=== PATIENT | female | born 1980 | race Caucasian/White ===

== ENCOUNTER 2017-07-27 20:07 | Emergency (ER) | payer BC, OTHER ==
[2017-07-27 20:20] VITALS: BP 151/104
[2017-07-27] MEDS ORDERED: Sodium Chloride 0.9% 10 ML Syringe FLUSH PRN (20:34)
[2017-07-27] MEDS ORDERED: HYDROmorphone 0.5 MG/0.5 ML SYRINGE IVPUSH ONE ×2 (20:34→21:20)
[2017-07-27] MEDS ORDERED: Ondansetron 4 MG/2 ML SDV IVPUSH ONE (20:34)
[2017-07-27] MEDS ORDERED: Sodium Chloride 0.9% 1,000 ML IV SCH (20:45)
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
[2017-07-27] MEDS ORDERED: 50% Dextrose in Water 50 ML Syringe IVPUSH ONE (21:26)
== END 2017-07-27 22:40 | disposition home or self-care (01) ==
LOC: JD.ED 20:07
DX: R10.84 Generalized abdominal pain (principal); R19.7 Diarrhea, unspecified; R11.10 Vomiting, unspecified; I10 Essential (primary) hypertension; F17.210 Nicotine dependence, cigarettes, uncomplicated; Z88.2 Allergy status to sulfonamides; Z88.1 Allergy status to other antibiotic agents; Z79.899 Other long term (current) drug therapy
CPT/HCPCS: 36415; 80053; 85025; 96361; 96374; 96375; 99284; J1170; J2405; J7040; J7050; J7060

== ENCOUNTER 2021-03-08 17:44 | Emergency (ER) | payer SELFPAY ==
[2021-03-08 18:49] VITALS: BP 185/107; PULSE 76
[2021-03-08] MEDS ORDERED: Diphtheria,Pertussis(Acell),Tetanus Vaccine 0.5 ML Syringe IM ONE (19:28)
[2021-03-08] MEDS ORDERED: Lidocaine 1% 10 ML MDV INJECT ONE (19:28)
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
== END 2021-03-08 20:25 | disposition home or self-care (01) ==
LOC: JD.ED 17:44
DX: S01.112A Laceration without foreign body of left eyelid and periocular area, initial encounter (principal); S80.212A Abrasion, left knee, initial encounter; S40.212A Abrasion of left shoulder, initial encounter; I10 Essential (primary) hypertension; Z23 Encounter for immunization; Z72.0 Tobacco use; Z88.0 Allergy status to penicillin; Z88.2 Allergy status to sulfonamides; W01.198A Fall on same level from slipping, tripping and stumbling with subsequent striking against other object, initial encounter; Y93.01 Activity, walking, marching and hiking; Y92.480 Sidewalk as the place of occurrence of the external cause
CPT/HCPCS: 12011; 90471; 90715; 99282-25

== ENCOUNTER 2022-03-24 15:34 | Emergency (ER) | payer MEDICAID ==
[2022-03-24 16:11] VITALS: BP 229/200; PULSE 109
== END 2022-03-24 16:12 | disposition home or self-care (01) ==
LOC: JD.ED 15:34
DX: R09.2 Respiratory arrest (principal); R55 Syncope and collapse; I10 Essential (primary) hypertension; Z88.0 Allergy status to penicillin; Z88.2 Allergy status to sulfonamides
CPT/HCPCS: 99283

== ENCOUNTER 2022-06-09 03:12 | Emergency (ER) | payer MEDICAID ==
[2022-06-09] MEDS ORDERED: Sodium Chloride 0.9% 10 ML Syringe FLUSH PRN (03:25)
[2022-06-09] MEDS ORDERED: Sodium Chloride 0.9% 1,000 ML IV STA (03:25)
[2022-06-09] MEDS ORDERED: HYDROmorphone 1 MG/ML Syringe IVPUSH ONE (03:26)
[2022-06-09] MEDS ORDERED: Ondansetron 4 MG/2 ML SDV IVPUSH ONE (03:26)
[2022-06-09 03:31] VITALS: BP 194/117; PULSE 72
[2022-06-09 04:07] LABS: ESTIMATED GFR 82 mL/min (>60)
[2022-06-09] MEDS ORDERED: LORazepam 2 MG/ML SDV IVPUSH ONE (04:41)
[2022-06-09] MEDS ORDERED: Iopamidol 612 MG/ML 100 ML Bottle IVPUSH ONE (05:35)
== END 2022-06-09 06:07 | disposition home or self-care (01) ==
LOC: JD.ED 03:12
DX: A08.4 Viral intestinal infection, unspecified (principal); I10 Essential (primary) hypertension; Z88.2 Allergy status to sulfonamides; Z88.0 Allergy status to penicillin; Z98.890 Other specified postprocedural states
CPT/HCPCS: 36415; 74177; 80053; 83690; 84703; 85025; 96361; 96374; 96375; 99284; J1170; J2060; J2405; J3490; J7030; Q9967

== ENCOUNTER 2023-01-19 10:57 | Emergency (ER) | payer MEDICAID ==
[2023-01-19] MEDS ORDERED: Lisinopril 20 MG Tab PO SCH (11:30)
[2023-01-19 11:49] LABS: BASOPHILS ABSOLUTE AUTO 0.1 K/mm3 (0.0-0.2); BASOPHILS PERCENT AUTO 0.9 % (0.0-1.0); EOSINOPHILS ABSOLUTE AUTO 0.2 K/mm3 (0.0-0.4); EOSINOPHILS PERCENT AUTO 2.2 % (0.0-6.0); HEMATOCRIT 40.8 % (37.0-47.0); HEMOGLOBIN 13.4 gm/dl (12.0-16.0); IMMATURE GRAN ABSOLUTE AUTO 0.03 K/mm3 (0.00-0.05); IMMATURE GRAN PERCENT AUTO 0.4 % (0.0-0.4); LYMPHOCYTES ABSOLUTE AUTO 0.9 K/mm3 (1.0-4.8); LYMPHOCYTES PERCENT AUTO 10.8 % (24.0-44.0); MEAN CORPUSCULAR HEMOGLOBIN 26.6 pg (28.0-32.0); MEAN CORPUSCULAR HGB CONC 32.8 g/dl (32.0-36.0); MEAN CORPUSCULAR VOLUME 81.1 fl (83.0-99.0); MEAN PLATELET VOLUME 10.6 fl (9.4-12.3); MONOCYTES ABSOLUTE AUTO 0.8 K/mm3 (0.0-0.8); MONOCYTES PERCENT AUTO 9.5 % (0.0-8.0); NEUTROPHILS ABSOLUTE AUTO 6.5 K/mm3 (1.8-7.7); NEUTROPHILS PERCENT AUTO 76.2 % (41.0-71.0); PLATELET COUNT,PLT 271 K/mm3 (150-400); RED BLOOD CELL COUNT 5.03 M/mm3 (4.10-5.30)
[2023-01-19 12:00] LABS: APPEARANCE,URINE CLEAR (Clear); BILIRUBIN,URINE NEGATIVE (Negative); COLOR,URINE YELLOW (Yellow); GLUCOSE,URINE NEGATIVE (Negative); KETONES,URINE NEGATIVE (Negative); LEUKOCYTE ESTERASE,URINE NEGATIVE (Negative); NITRITE,URINE NEGATIVE (Negative); OCCULT BLOOD,URINE NEGATIVE (Negative); PROTEIN,URINE 2+ (Negative); UROBILINOGEN,URINE 0.2 (0.2-1.0)
[2023-01-19 12:13] LABS: BACTERIA,URINE FEW /hpf (FEW); HYALINE CASTS,URINE 0-5 /lpf (0-5); MUCUS,URINE MODERATE /hpf (FEW); RBC,URINE 0-5 /hpf (0-5); WBC,URINE 0-5 /hpf (0-5)
[2023-01-19 12:15] LABS: A/G RATIO 0.9 (1-2); ALBUMIN 3.5 g/dl (3.4-5.0); ANION GAP 11.8 (5-15); BILIRUBIN TOTAL 0.3 mg/dL (0.2-1.0); BUN/CREATININE RATIO 8.6 (14-18); CALCIUM 8.7 mg/dL (8.5-10.1); CREATININE 0.7 mg/dL (0.55-1.02); EST CRCL DRUG DOSING (CG) 90.41 mL/min; POTASSIUM,K 2.8 mEq/L (3.5-5.1); PROTEIN TOTAL,TP 7.5 g/dl (6.4-8.2)
[2023-01-19] MEDS ORDERED: Potassium Chloride 20 MEQ Tab.ER PO ONE (12:24)
[2023-01-19 13:01] LABS: CORONAVIRUS COVID-19 NAA NEGATIVE (NEGATIVE); INFLUENZA A NAA NEGATIVE (NEGATIVE)
[2023-01-19 13:49] LABS: BARBITURATE SCREEN,URINE NEGATIVE (CUTOFF=200); BENZODIAZEPINES SCREEN,URINE NEGATIVE (CUTOFF=150); BUPRENORPHINE SCREEN,URINE NEGATIVE (CUTOFF=10); METHADONE SCREEN, URINE NEGATIVE (CUTOFF=200); METHAMPHETAMINES SCREEN, URINE PRESUMPTIVE POSITIVE (CUTOFF=500); OXYCODONE SCREEN,URINE NEGATIVE (CUT0FF=100); PROPOXYPHENE SCREEN,URINE NEGATIVE (CUTOFF=300); THC SCREEN,URINE 20 NG/ML NEGATIVE (CUTOFF=50)
[2023-01-19 13:51] LABS: AMPHETAMINES SCREEN, URINE PRESUMPTIVE POSITIVE (CUTOFF=500)
[2023-01-19] MEDS ORDERED: Carvedilol 3.125 MG Tab PO ONE (14:44)
[2023-01-19] MEDS ORDERED: amLODIPine 5 MG Tab PO ONE (14:45)
[2023-01-19] MEDS ORDERED: amLODIPine 2.5 MG Tab PO ONE (15:00)
[2023-01-19 16:01] VITALS: BP 173/108; PULSE 73
== END 2023-01-19 15:50 | disposition home or self-care (01) ==
LOC: JD.ED 10:57
DX: I10 Essential (primary) hypertension (principal); F15.90 Other stimulant use, unspecified, uncomplicated; R79.89 Other specified abnormal findings of blood chemistry; I51.7 Cardiomegaly; Z20.822 Contact with and (suspected) exposure to COVID-19; Z79.899 Other long term (current) drug therapy; Z88.1 Allergy status to other antibiotic agents; Z88.2 Allergy status to sulfonamides
CPT/HCPCS: 0240U; 36415; 71046; 80053; 80306; 81001; 84484; 85025; 93005; 99284; A9270; 93010; 99283

== ENCOUNTER 2023-07-01 13:03 | Emergency (ER) | payer SELFPAY ==
[2023-07-01 13:13] VITALS: PULSE 74
[2023-07-01] MEDS: Metoclopramide 10 MG/2 ML SDV IVPUSH ONE (14:23)
[2023-07-01] MEDS: Dextrose 5%-0.9% NaCl 1,000 ML IV SCH (14:23)
[2023-07-01] MEDS: Labetalol 100 MG/20 ML MDV IVPUSH ONE (14:24)
[2023-07-01 14:30] LABS: BASOPHILS ABSOLUTE AUTO 0.1 K/mm3 (0.0-0.2); EOSINOPHILS ABSOLUTE AUTO 0.2 K/mm3 (0.0-0.4); EOSINOPHILS PERCENT AUTO 2.3 % (0.0-6.0); HEMOGLOBIN 14.2 gm/dl (12.0-16.0); IMMATURE GRAN ABSOLUTE AUTO 0.03 K/mm3 (0.00-0.05); IMMATURE GRAN PERCENT AUTO 0.3 % (0.0-0.4); LYMPHOCYTES PERCENT AUTO 10.2 % (24.0-44.0); MEAN CORPUSCULAR HEMOGLOBIN 27.7 pg (28.0-32.0); MEAN CORPUSCULAR VOLUME 83.8 fl (83.0-99.0); MEAN PLATELET VOLUME 10.9 fl (9.4-12.3); MONOCYTES ABSOLUTE AUTO 0.7 K/mm3 (0.0-0.8); MONOCYTES PERCENT AUTO 7.2 % (0.0-8.0); NEUTROPHILS ABSOLUTE AUTO 8.1 K/mm3 (1.8-7.7); PLATELET COUNT,PLT 314 K/mm3 (150-400); RED BLOOD CELL COUNT 5.13 M/mm3 (4.10-5.30); WHITE BLOOD CELL COUNT,WBC 10.19 K/mm3 (3.9-11.3)
[2023-07-01 14:44] LABS: PROTHROMBIN TIME 9.8 SECONDS (9.7-12.0)
[2023-07-01 14:48] LABS: INR < 0.93
[2023-07-01] MEDS ORDERED: HYDROmorphone 0.5 MG/0.5 ML Syringe IVPUSH ONE (15:13)
[2023-07-01 15:24] LABS: A/G RATIO 0.8 (1-2); ALBUMIN 3.4 g/dl (3.4-5.0); ANION GAP 13.8 (5-15); BILIRUBIN TOTAL 0.5 mg/dL (0.2-1.0); CALCIUM 8.4 mg/dL (8.5-10.1); CREATININE 0.6 mg/dL (0.55-1.02); EST CRCL DRUG DOSING (CG) 104.4 mL/min; MAGNESIUM 1.5 mg/dL (1.8-2.4); POTASSIUM,K 2.8 mEq/L (3.5-5.1); PROTEIN TOTAL,TP 7.5 g/dl (6.4-8.2)
[2023-07-01] MEDS: amLODIPine 10 MG Tab PO ONE (16:01)
[2023-07-01] MEDS: Losartan 50 MG Tab PO ONE (16:01)
[2023-07-01 16:02] VITALS: BP 168/92
[2023-07-01] MEDS: Ondansetron 4 MG Tab.DIS PO ONE (17:27)
== END 2023-07-01 17:35 | disposition home or self-care (01) ==
LOC: JD.ED 13:03
DX: S13.9XXA Sprain of joints and ligaments of unspecified parts of neck, initial encounter (principal); S00.03XA Contusion of scalp, initial encounter; I10 Essential (primary) hypertension; F17.210 Nicotine dependence, cigarettes, uncomplicated; R11.2 Nausea with vomiting, unspecified; Z88.0 Allergy status to penicillin; Z88.2 Allergy status to sulfonamides; Z79.899 Other long term (current) drug therapy; Z86.16 Personal history of COVID-19; W54.1XXA Struck by dog, initial encounter
CPT/HCPCS: 36415; 70450; 80053; 83735; 83880; 85025; 85610; 85730; 93005; 96361; 96374; 96375; 99284; A9270; J1921; J2765; J7042; 93010

== ENCOUNTER 2023-09-02 19:11 | Inpatient (IN) | payer SELFPAY ==
[2023-09-02 21:06] LABS: BASOPHILS ABSOLUTE AUTO 0.1 K/mm3 (0.0-0.2); BASOPHILS PERCENT AUTO 1.1 % (0.0-1.0); EOSINOPHILS ABSOLUTE AUTO 0.1 K/mm3 (0.0-0.4); EOSINOPHILS PERCENT AUTO 2.7 % (0.0-6.0); HEMOGLOBIN 13.6 gm/dl (12.0-16.0); IMMATURE GRAN ABSOLUTE AUTO 0.01 K/mm3 (0.00-0.05); IMMATURE GRAN PERCENT AUTO 0.2 % (0.0-0.4); LYMPHOCYTES ABSOLUTE AUTO 0.4 K/mm3 (1.0-4.8); LYMPHOCYTES PERCENT AUTO 6.8 % (24.0-44.0); MEAN CORPUSCULAR HEMOGLOBIN 28.8 pg (28.0-32.0); MEAN CORPUSCULAR HGB CONC 33.2 g/dl (32.0-36.0); MEAN CORPUSCULAR VOLUME 86.7 fl (83.0-99.0); MEAN PLATELET VOLUME 10.9 fl (9.4-12.3); MONOCYTES ABSOLUTE AUTO 0.7 K/mm3 (0.0-0.8); MONOCYTES PERCENT AUTO 13.8 % (0.0-8.0); NEUTROPHILS PERCENT AUTO 75.4 % (41.0-71.0); PLATELET COUNT,PLT 226 K/mm3 (150-400); RED BLOOD CELL COUNT 4.73 M/mm3 (4.10-5.30); WHITE BLOOD CELL COUNT,WBC 5.28 K/mm3 (3.9-11.3)
[2023-09-02] MEDS: Metoprolol Tartrate 25 MG Tab PO ONE ×2 (21:08→22:28)
[2023-09-02] MEDS: hydrALAZINE 25 MG Tab PO ONE (21:09)
[2023-09-02 21:38] LABS: ANION GAP 12.2 (5-15); BUN/CREATININE RATIO 6.3 (14-18); CALCIUM 8.4 mg/dL (8.5-10.1); CREATININE 0.8 mg/dL (0.55-1.02); EST CRCL DRUG DOSING (CG) 78.3 mL/min; POTASSIUM,K 3.2 mEq/L (3.5-5.1)
[2023-09-02 22:54] LABS: BUPRENORPHINE SCREEN,URINE NEGATIVE (CUTOFF=10)
[2023-09-02 22:55] LABS: BARBITURATE SCREEN,URINE NEGATIVE (CUTOFF=200); BENZODIAZEPINES SCREEN,URINE NEGATIVE (CUTOFF=150); METHADONE SCREEN, URINE NEGATIVE (CUTOFF=200); METHAMPHETAMINES SCREEN, URINE PRESUMPTIVE POSITIVE (CUTOFF=500); OXYCODONE SCREEN,URINE NEGATIVE (CUT0FF=100); THC SCREEN,URINE 20 NG/ML NEGATIVE (CUTOFF=50)
[2023-09-02 22:56] LABS: AMPHETAMINES SCREEN, URINE PRESUMPTIVE POSITIVE (CUTOFF=500)
[2023-09-03] MEDS: hydrALAZINE 25 MG Tab PO PRN (01:59)
[2023-09-03] MEDS ORDERED: Sodium Chloride 0.9% 10 ML Syringe FLUSH PRN (02:25)
[2023-09-03] MEDS: Acetaminophen 325 MG Tab PO PRN (02:39)
[2023-09-03 06:26] LABS: HEMATOCRIT 42.9 % (37.0-47.0); HEMOGLOBIN 14.3 gm/dl (12.0-16.0); MEAN CORPUSCULAR HEMOGLOBIN 28.7 pg (28.0-32.0); MEAN CORPUSCULAR HGB CONC 33.3 g/dl (32.0-36.0); MEAN CORPUSCULAR VOLUME 86.1 fl (83.0-99.0); MEAN PLATELET VOLUME 11.1 fl (9.4-12.3); PLATELET COUNT,PLT 250 K/mm3 (150-400); RED BLOOD CELL COUNT 4.98 M/mm3 (4.10-5.30); WHITE BLOOD CELL COUNT,WBC 4.15 K/mm3 (3.9-11.3)
[2023-09-03 06:47] LABS: A/G RATIO 0.9 (1-2); ALBUMIN 3.1 g/dl (3.4-5.0); ANION GAP 11.4 (5-15); BILIRUBIN TOTAL 0.3 mg/dL (0.2-1.0); BUN/CREATININE RATIO 3.8 (14-18); CALCIUM 8.6 mg/dL (8.5-10.1); CREATININE 0.8 mg/dL (0.55-1.02); EST CRCL DRUG DOSING (CG) 78.3 mL/min; POTASSIUM,K 3.4 mEq/L (3.5-5.1); PROTEIN TOTAL,TP 6.7 g/dl (6.4-8.2)
[2023-09-03] MEDS: amLODIPine 10 MG Tab PO SCH (08:23)
[2023-09-03] MEDS: Losartan 50 MG Tab PO SCH (10:59)
[2023-09-03 11:00] VITALS: BP 158/103
[2023-09-03 11:20] VITALS: PULSE 78
== END 2023-09-03 12:39 | disposition home or self-care (01) | DRG 305 ==
LOC: JD.ED 19:11 → JD.MS 09-03 00:24
PROVIDERS: ADMIT Internal Medicine; ATTEND Internal Medicine
DX: I16.0 Hypertensive urgency (principal); H54.7 Unspecified visual loss; I10 Essential (primary) hypertension; M54.9 Dorsalgia, unspecified; G89.29 Other chronic pain; F41.9 Anxiety disorder, unspecified; F32.A Depression, unspecified; R79.89 Other specified abnormal findings of blood chemistry; F15.10 Other stimulant abuse, uncomplicated; F17.210 Nicotine dependence, cigarettes, uncomplicated; Z88.0 Allergy status to penicillin; Z88.2 Allergy status to sulfonamides; Z79.899 Other long term (current) drug therapy; Z86.16 Personal history of COVID-19; Z98.891 History of uterine scar from previous surgery
CPT/HCPCS: 36415; 70450; 70450-26; 71045; 71045-26; 80048; 80053; 80306; 84484; 84703; 85025; 85027; 93005; 99285; A9270-GY

== ENCOUNTER 2023-09-03 18:05 | Emergency (ER) | payer SELFPAY ==
[2023-09-03 18:33] VITALS: BP 123/87; PULSE 93
== END 2023-09-03 21:00 | disposition left against medical advice (07) ==
LOC: JD.ED 18:05
DX: Z53.21 Procedure and treatment not carried out due to patient leaving prior to being seen by health care provider (principal)
CPT/HCPCS: 82947

== ENCOUNTER 2023-12-13 17:36 | Emergency (ER) | payer OTHER ==
[2023-12-13] MEDS: Sodium Chloride 0.9% 10 ML Syringe FLUSH ONE (18:18)
[2023-12-13] MEDS: Iopamidol 612 MG/ML 100 ML Bottle IVPUSH ONE (18:18)
[2023-12-13 18:20] LABS: BASOPHILS ABSOLUTE AUTO 0.1 K/mm3 (0.0-0.2); BASOPHILS PERCENT AUTO 0.9 % (0.0-1.0); EOSINOPHILS ABSOLUTE AUTO 0.1 K/mm3 (0.0-0.4); EOSINOPHILS PERCENT AUTO 1.5 % (0.0-6.0); HEMATOCRIT 46.6 % (37.0-47.0); IMMATURE GRAN ABSOLUTE AUTO 0.02 K/mm3 (0.00-0.05); IMMATURE GRAN PERCENT AUTO 0.2 % (0.0-0.4); LYMPHOCYTES ABSOLUTE AUTO 1.2 K/mm3 (1.0-4.8); LYMPHOCYTES PERCENT AUTO 13.8 % (24.0-44.0); MEAN CORPUSCULAR HEMOGLOBIN 30.1 pg (28.0-32.0); MEAN CORPUSCULAR HGB CONC 34.3 g/dl (32.0-36.0); MEAN CORPUSCULAR VOLUME 87.6 fl (83.0-99.0); MEAN PLATELET VOLUME 10.2 fl (9.4-12.3); MONOCYTES ABSOLUTE AUTO 0.9 K/mm3 (0.0-0.8); MONOCYTES PERCENT AUTO 10.3 % (0.0-8.0); NEUTROPHILS ABSOLUTE AUTO 6.5 K/mm3 (1.8-7.7); NEUTROPHILS PERCENT AUTO 73.3 % (41.0-71.0); PLATELET COUNT,PLT 265 K/mm3 (150-400); RED BLOOD CELL COUNT 5.32 M/mm3 (4.10-5.30); WHITE BLOOD CELL COUNT,WBC 8.86 K/mm3 (3.9-11.3)
[2023-12-13] MEDS: HYDROmorphone 0.5 MG/0.5 ML Syringe IVPUSH ONE (18:32)
[2023-12-13] MEDS: Labetalol 100 MG/20 ML MDV IVPUSH ONE (18:32)
[2023-12-13] MEDS: Sodium Chloride 0.9% 10 ML Syringe FLUSH PRN (18:42)
[2023-12-13 18:45] LABS: A/G RATIO 1.1 (1-2); ALANINE AMINOTRANSFERASE,ALT 19 U/L (14-59); ALBUMIN 4.3 g/dl (3.4-5.0); ALKALINE PHOSPHATASE 89 U/L (46-116); ANION GAP 13.7 (5-15); ASPARTATE AMNIOTRANSFERASE,AST 21 U/L (15-37); BILIRUBIN TOTAL 0.6 mg/dL (0.2-1.0); BLOOD UREA NITROGEN,BUN 11 mg/dL (7-18); BUN/CREATININE RATIO 8.5 (14-18); CALCIUM 9.4 mg/dL (8.5-10.1); CARBON DIOXIDE,CO2 27 mEq/L (21-32); CHLORIDE,CL 100 mEq/L (98-107); CREATININE 1.3 mg/dL (0.55-1.02); ESTIMATED GFR 52 mL/min (>60); GLUCOSE RANDOM 129 mg/dL (70-99); POTASSIUM,K 3.7 mEq/L (3.5-5.1); PROTEIN TOTAL,TP 8.3 g/dl (6.4-8.2); SODIUM,NA 137 mEq/L (136-145)
[2023-12-13 23:12] VITALS: BP 125/82; PULSE 81
== END 2023-12-13 21:00 | disposition home or self-care (01) ==
LOC: JD.ED 17:36
DX: R51.9 Headache, unspecified (principal); I10 Essential (primary) hypertension; Z86.16 Personal history of COVID-19; Z79.899 Other long term (current) drug therapy; Z88.2 Allergy status to sulfonamides; Z88.0 Allergy status to penicillin; V89.2XXA Person injured in unspecified motor-vehicle accident, traffic, initial encounter
CPT/HCPCS: 36415; 70450; 71045; 71260; 72125; 74177; 80053; 80307; 84703; 85025; 96374; 96375; 99284; J1170; J1921; J3490; Q9967

== ENCOUNTER 2023-12-15 08:48 | Emergency (ER) | payer SELFPAY ==
[2023-12-15 10:08] LABS: BASOPHILS ABSOLUTE AUTO 0.1 K/mm3 (0.0-0.2); BASOPHILS PERCENT AUTO 0.6 % (0.0-1.0); EOSINOPHILS ABSOLUTE AUTO 0.2 K/mm3 (0.0-0.4); HEMATOCRIT 47.6 % (37.0-47.0); HEMOGLOBIN 16.1 gm/dl (12.0-16.0); IMMATURE GRAN ABSOLUTE AUTO 0.02 K/mm3 (0.00-0.05); IMMATURE GRAN PERCENT AUTO 0.2 % (0.0-0.4); LYMPHOCYTES ABSOLUTE AUTO 1.1 K/mm3 (1.0-4.8); LYMPHOCYTES PERCENT AUTO 12.3 % (24.0-44.0); MEAN CORPUSCULAR HGB CONC 33.8 g/dl (32.0-36.0); MEAN CORPUSCULAR VOLUME 88.6 fl (83.0-99.0); MEAN PLATELET VOLUME 10.6 fl (9.4-12.3); MONOCYTES ABSOLUTE AUTO 0.8 K/mm3 (0.0-0.8); MONOCYTES PERCENT AUTO 8.6 % (0.0-8.0); NEUTROPHILS ABSOLUTE AUTO 6.7 K/mm3 (1.8-7.7); NEUTROPHILS PERCENT AUTO 76.3 % (41.0-71.0); PLATELET COUNT,PLT 295 K/mm3 (150-400); RED BLOOD CELL COUNT 5.37 M/mm3 (4.10-5.30); WHITE BLOOD CELL COUNT,WBC 8.71 K/mm3 (3.9-11.3)
[2023-12-15] MEDS: hydrALAZINE 20 MG/ML SDV IVPUSH ONE (10:13)
[2023-12-15] MEDS: Dextrose 5%-Lactated Ringers 1,000 ML IV SCH (10:14)
[2023-12-15 10:31] LABS: ALBUMIN 3.6 g/dl (3.4-5.0); ANION GAP 13.5 (5-15); BILIRUBIN TOTAL 0.6 mg/dL (0.2-1.0); BUN/CREATININE RATIO 16.7 (14-18); C-REACTIVE PROTEIN 0.1 mg/dL (<0.30); CALCIUM 8.6 mg/dL (8.5-10.1); CREATININE 0.9 mg/dL (0.55-1.02); EST CRCL DRUG DOSING (CG) 69.6 mL/min; MAGNESIUM 1.9 mg/dL (1.8-2.4); POTASSIUM,K 3.5 mEq/L (3.5-5.1); PROTEIN TOTAL,TP 7.3 g/dl (6.4-8.2)
[2023-12-15 10:34] LABS: LACTIC ACID 0.6 mmol/L (0.4-2.0)
[2023-12-15 10:44] LABS: CORONAVIRUS COVID-19 NAA NEGATIVE (NEGATIVE); INFLUENZA A NAA NEGATIVE (NEGATIVE); RESPIRATORY SYNCYTIAL VIR NAA NEGATIVE (NEGATIVE)
[2023-12-15] MEDS: Labetalol 100 MG/20 ML MDV IVPUSH ONE (11:44)
[2023-12-15] MEDS: amLODIPine 10 MG Tab PO ONE (11:47)
[2023-12-15 13:00] LABS: APPEARANCE,URINE CLEAR (Clear); BILIRUBIN,URINE NEGATIVE (Negative); COLOR,URINE YELLOW (Yellow); GLUCOSE,URINE 1+ (Negative); KETONES,URINE TRACE (Negative); LEUKOCYTE ESTERASE,URINE NEGATIVE (Negative); NITRITE,URINE NEGATIVE (Negative); OCCULT BLOOD,URINE NEGATIVE (Negative); PROTEIN,URINE 1+ (Negative); UROBILINOGEN,URINE 0.2 (0.2-1.0)
[2023-12-15 13:32] LABS: BACTERIA,URINE FEW /hpf (FEW); MUCUS,URINE FEW /hpf (FEW); RBC,URINE 0-5 /hpf (0-5); WBC,URINE 0-5 /hpf (0-5)
[2023-12-15 17:33] LABS: BARBITURATE SCREEN,URINE NEGATIVE (CUTOFF=200); BENZODIAZEPINES SCREEN,URINE NEGATIVE (CUTOFF=150); BUPRENORPHINE SCREEN,URINE NEGATIVE (CUTOFF=10); METHADONE SCREEN, URINE NEGATIVE (CUTOFF=200); METHAMPHETAMINES SCREEN, URINE PRESUMPTIVE POSITIVE (CUTOFF=500); OXYCODONE SCREEN,URINE NEGATIVE (CUT0FF=100); THC SCREEN,URINE 20 NG/ML PRESUMPTIVE POSITIVE (CUTOFF=50)
[2023-12-15 17:41] LABS: AMPHETAMINES SCREEN, URINE PRESUMPTIVE POSITIVE (CUTOFF=500)
[2023-12-15 19:38] VITALS: BP 161/105; PULSE 79
== END 2023-12-15 17:41 | disposition home or self-care (01) ==
LOC: JD.ED 08:48
DX: I10 Essential (primary) hypertension (principal); G47.10 Hypersomnia, unspecified; Z88.0 Allergy status to penicillin; Z88.2 Allergy status to sulfonamides; Z79.899 Other long term (current) drug therapy; Z86.16 Personal history of COVID-19; F17.210 Nicotine dependence, cigarettes, uncomplicated
CPT/HCPCS: 0241U; 36415; 70450; 80053; 80306; 81001; 83605; 83735; 85025; 86140; 93005; 96361; 96374; 96375; 99284; A9270; J0360; J1921; J7121; 93010

== ENCOUNTER 2024-05-06 10:37 | Emergency (ER) | payer SELFPAY ==
[2024-05-06 10:57] VITALS: BP 173/108; PULSE 86
[2024-05-06] MEDS: Sodium Chloride 0.9% 10 ML Syringe FLUSH PRN (12:04)
[2024-05-06] MEDS: Sodium Chloride 0.9% 1,000 ML IV STA (12:04)
[2024-05-06 12:20] LABS: BASOPHILS ABSOLUTE AUTO 0.1 K/mm3 (0.0-0.2); BASOPHILS PERCENT AUTO 0.6 % (0.0-1.0); EOSINOPHILS ABSOLUTE AUTO 0.3 K/mm3 (0.0-0.4); EOSINOPHILS PERCENT AUTO 2.1 % (0.0-6.0); HEMATOCRIT 39.9 % (37.0-47.0); HEMOGLOBIN 13.5 gm/dl (12.0-16.0); IMMATURE GRAN ABSOLUTE AUTO 0.03 K/mm3 (0.00-0.05); IMMATURE GRAN PERCENT AUTO 0.2 % (0.0-0.4); LYMPHOCYTES ABSOLUTE AUTO 1.5 K/mm3 (1.0-4.8); LYMPHOCYTES PERCENT AUTO 12.1 % (24.0-44.0); MEAN CORPUSCULAR HEMOGLOBIN 30.3 pg (28.0-32.0); MEAN CORPUSCULAR HGB CONC 33.8 g/dl (32.0-36.0); MEAN CORPUSCULAR VOLUME 89.5 fl (83.0-99.0); MEAN PLATELET VOLUME 10.9 fl (9.4-12.3); MONOCYTES PERCENT AUTO 8.5 % (0.0-8.0); NEUTROPHILS ABSOLUTE AUTO 9.3 K/mm3 (1.8-7.7); NEUTROPHILS PERCENT AUTO 76.5 % (41.0-71.0); PLATELET COUNT,PLT 289 K/mm3 (150-400); RED BLOOD CELL COUNT 4.46 M/mm3 (4.10-5.30)
[2024-05-06 12:58] LABS: HCG QUALITATIVE,SERUM NEGATIVE (NEGATIVE)
[2024-05-06 13:01] LABS: A/G RATIO 0.9 (1-2); ALBUMIN 3.5 g/dl (3.4-5.0); ANION GAP 13.3 (5-15); BILIRUBIN TOTAL 0.4 mg/dL (0.2-1.0); BUN/CREATININE RATIO 13.8 (14-18); CALCIUM 8.4 mg/dL (8.5-10.1); CREATININE 0.8 mg/dL (0.55-1.02); EST CRCL DRUG DOSING (CG) 77.49 mL/min; POTASSIUM,K 3.3 mEq/L (3.5-5.1); PROTEIN TOTAL,TP 7.4 g/dl (6.4-8.2)
[2024-05-06 13:13] LABS: PRO B-TYPE NATRIUR PEPT,BNPPRO 124 pg/mL (0-125)
[2024-05-06 14:00] LABS: APPEARANCE,URINE CLEAR (Clear); BILIRUBIN,URINE NEGATIVE (Negative); COLOR,URINE YELLOW (Yellow); GLUCOSE,URINE NEGATIVE (Negative); KETONES,URINE NEGATIVE (Negative); LEUKOCYTE ESTERASE,URINE NEGATIVE (Negative); NITRITE,URINE NEGATIVE (Negative); OCCULT BLOOD,URINE NEGATIVE (Negative); PH,URINE 6.5 (5.0-8.0); PROTEIN,URINE NEGATIVE (Negative); UROBILINOGEN,URINE 0.2 (0.2-1.0)
== END 2024-05-06 14:45 | disposition home or self-care (01) ==
LOC: JD.ED 10:37
DX: K52.9 Noninfective gastroenteritis and colitis, unspecified (principal); I10 Essential (primary) hypertension; F17.210 Nicotine dependence, cigarettes, uncomplicated; Z86.16 Personal history of COVID-19; Z88.0 Allergy status to penicillin; Z88.2 Allergy status to sulfonamides
CPT/HCPCS: 36415; 80053; 81003; 83690; 83880; 84703; 85025; 87428; 96360; 96361; 99284; J7030